=== PATIENT | female | born 1975 | race Caucasian/White ===

== ENCOUNTER 2020-03-10 16:36 | Inpatient (IN) | payer OTHER ==
--- NOTE | 2020-03-10 17:13 | ER Document Report ---
ED General - General Chief Complaint: Abdominal Pain Stated Complaint: SHORTNESS OF BREATH Time Seen by Provider: 03/10/20 16:48 Mode of Arrival: Wheelchair Information source: Patient Notes: 44-year-old female presents to ED for complaint of shortness of breath with hard black stools history of anemia. She states she has a horrible taste in her mouth and frequent dry heaves with a sore throat. TRAVEL OUTSIDE OF THE [place] IN LAST 30 DAYS: No - HPI Onset: Last week Quality of pain: Cramping - Couple weeks Associated symptoms: Nausea, Other - The patient black tarry stools short of breath dizziness decreased appetite and nausea Exacerbated by: Denies Relieved by: Denies Similar symptoms previously: Yes Recently seen / treated by doctor: No - Related Data Allergies/Adverse Reactions: No Known Allergies Allergy (Unverified 03/04/16 14:54) Past Medical History - General Information source: Patient - Social History Smoking Status: Never Smoker Frequency of alcohol use: Heavy - Couple cocktails a night Drug Abuse: None Lives with: Family Family History: Reviewed & Not Pertinent Patient has homicidal ideation: No - Past Medical History Cardiac Medical History: Reports: None Pulmonary Medical History: Reports: None EENT Medical History: Reports: None Neurological Medical History: Reports: None Endocrine Medical History: Reports: None Renal/ Medical History: Reports: None Malignancy Medical History: Reports: None GI Medical History: Reports: Other - Gallbladder was attached to the liver causing mild to be leakage with gallb Musculoskeletal Medical History: Reports Hx Musculoskeletal Trauma Skin Medical History: Reports None Psychiatric Medical History: Reports: None Traumatic Medical History: Reports: None Infectious Medical History: Reports: None Past Surgical History: Reports: Hx Abdominal Surgery - Gastric sleeve, Hx Cholecystectomy - With complications Review of Systems - Review of Systems Constitutional: No symptoms reported EENT: No symptoms reported Cardiovascular: No symptoms reported Respiratory: No symptoms reported Gastrointestinal: Abdominal pain, Nausea, Constipation. denies: Vomiting Genitourinary: No symptoms reported Female Genitourinary: No symptoms reported Musculoskeletal: No symptoms reported Skin: No symptoms reported Hematologic/Lymphatic: No symptoms reported Neurological/Psychological: No symptoms reported -: Yes All other systems reviewed and negative Physical Exam - Vital signs Vitals: Temp Pulse Resp BP Pulse Ox 98.5 F 109 H 21 H 154/111 H 98 03/10/20 16:44 03/10/20 16:44 03/10/20 16:44 03/10/20 16:44 03/10/20 16:44 Interpretation: Normal - General General appearance: Appears well, Alert - HEENT Head: Normocephalic, Atraumatic Eyes: Normal Pupils: PERRL - Respiratory Respiratory status: No respiratory distress Chest status: Nontender Breath sounds: Normal Chest palpation: Normal - Cardiovascular Rhythm: Regular Heart sounds: Normal auscultation Murmur: No - Abdominal Inspection: Normal Distension: No distension Bowel sounds: Normal Tenderness: Tender Organomegaly: No organomegaly - Back Back: Normal, Nontender - Extremities General upper extremity: Normal inspection, Nontender, Normal color, Normal ROM, Normal temperature General lower extremity: Normal inspection, Nontender, Normal color, Normal ROM, Normal temperature, Normal weight bearing. No: Yodit's sign - Neurological Neuro grossly intact: Yes Cognition: Normal Orientation: AAOx4 Yusef Coma Scale Eye Opening: Spontaneous Iraan Coma Scale Verbal: Oriented Yusef Coma Scale Motor: Obeys Commands Iraan Coma Scale Total: 15 Speech: Normal Motor strength normal: LUE, RUE, LLE, RLE Sensory: Normal - Psychological Associated symptoms: Normal affect, Normal mood - Skin Skin Temperature: Warm Skin Moisture: Dry Skin Color: Normal Course - Re-evaluation Re-evalutation: 03/10/20 20:[address] Delacruz after getting the lab results. He recommended the ultrasound right upper quadrant. This did show hepatomegaly with slight prominence to the pancreatic pancreas but no abnormal ducts and no ductal disease. I did consult Dr. Mathews who will be admitting the patient for pancreatitis and elevated LFTs. Dr. Mathews is aware that she drinks several cocktails a night. - Vital Signs Vital signs: Temp Pulse Resp BP Pulse Ox 98.2 F 76 18 155/76 H 99 03/10/20 21:29 03/10/20 21:29 03/10/20 21:29 03/10/20 21:29 03/10/20 21:29 - Laboratory Result Diagrams: 03/10/20 17:28 03/10/20 17:28 Laboratory results interpreted by me: 03/10/20 03/10/20 03/10/20 17:28 17:28 17:28 WBC 3.1 L MCV 98 H RDW 18.4 H Baso % (Auto) 2.5 H Sodium 133.6 L Chloride 94 L Carbon Dioxide 19 L Anion Gap 21 H BUN 4 L Glucose 74 L Total Bilirubin 4.7 H Direct Bilirubin 3.0 H AST 1255 H ALT 487 H Alkaline Phosphatase 233 H Lipase 2241.7 H Urine Protein 30 H Urine Ketones 80 H Urine Blood SMALL H Urine Bilirubin SMALL H Urine Urobilinogen 4.0 H - Diagnostic Test Radiology reviewed: Image reviewed, Reports reviewed Discharge - Discharge Clinical Impression: Elevated LFTs Pancreatitis Qualifiers: Chronicity: acute Pancreatitis type: unspecified pancreatitis type Acute panc reatitis complication: unspecified Qualified Code(s): K85.90 - Acute pancreatitis without necrosis or infection, unspecified Disposition: ADMITTED INPATIENT Admitting Provider: Bisi (Hospitalist) Unit Admitted: Medical Floor
[2020-03-10] MEDS ORDERED: NORMAL SALINE 1000 ML 1,000 ML IV ONE ×2 (17:15→19:43)
--- NOTE | 2020-03-10 17:41 | RADIOLOGY REPORT (SQ) ---
EXAM DESCRIPTION: CHEST 2 VIEWS IMAGES COMPLETED DATE/TIME: 03/10/2020 5:26 pm REASON FOR STUDY: short of breath COMPARISON: None. EXAM PARAMETERS: NUMBER OF VIEWS: two views TECHNIQUE: Digital Frontal and Lateral radiographic views of the chest acquired. RADIATION DOSE: NA LIMITATIONS: none FINDINGS: LUNGS AND PLEURA: Nonspecific elevation right diaphragm. No opacities, masses or pneumoth orax. No pleural effusion. MEDIASTINUM AND HILAR STRUCTURES: No masses or contour abnormalities. HEART AND VASCULAR STRUCTURES: Heart normal size. No evidence for failure. BONES: No acute findings. HARDWARE: None in the chest. OTHER: No other significant finding. IMPRESSION: NO ACUTE RADIOGRAPHIC FINDING IN THE CHEST. TECHNICAL DOCUMENTATION: JOB ID: [id number] 2010 [employer]- All Rights Reserved Reading location - IP/workstation name: [email or web address]
[2020-03-10] MEDS ORDERED: NA PHOS,M-B/NA PHOS,DI-BA (ADULT) 133 ML ENEMA PR ONE (17:47)
[2020-03-10] MEDS ORDERED: ONDANSETRON HCL INJ/PF 4 MG/2 ML SDV IV ONE (17:48)
[2020-03-10 17:52] LABS: ABSOLUTE BASOPHILS # (AUTO) 0.1 10^3/uL (0.0-0.2); ABSOLUTE LYMPHOCYTES (AUTO) 0.9 10^3/uL (0.5-4.7); ABSOLUTE MONOCYTES (AUTO) 0.3 10^3/uL (0.1-1.4); ABSOLUTE NEUT (AUTO) 1.8 10^3/uL (1.7-8.2); BASOPHILS % (AUTO) 2.5 % (0-2); EOSINOPHILS % (AUTO) 0.5 % (0-6); HEMATOCRIT 41.4 % (36.0-47.0); HEMOGLOBIN 14.1 g/dL (12.0-15.5); LYMPHOCYTES % (AUTO) 27.6 % (13-45); MEAN CORPUSCULAR HEMOGLOBIN 33.4 pg (27.0-33.4); MEAN CORPUSCULAR HGB CONC 34.1 g/dL (32.0-36.0); MEAN CORPUSCULAR VOLUME 98 fl (80-97); MONOCYTES % (AUTO) 10.1 % (3-13); PLATELET COUNT 153 10^3/uL (150-450); RED BLOOD COUNT 4.23 10^6/uL (3.72-5.28); RED CELL DISTRIBUTION WIDTH 18.4 % (11.5-14.0); SEGMENTED NEUTROPHILS % (AUTO) 59.3 % (42-78); TOTAL CELLS COUNTED % (AUTO) 100 %; WHITE BLOOD COUNT 3.1 10^3/uL (4.0-10.5)
[2020-03-10 17:55] LABS: APPEARANCE,URINE SLIGHTLY-CLOUDY; BILIRUBIN,URINE SMALL (NEGATIVE); GLUCOSE, URINE NEGATIVE (NEGATIVE); KETONES,URINE 80 mg/dL (NEGATIVE); PROTEIN,URINE 30 mg/dL (NEGATIVE); URINE SPECIFIC GRAVITY 1.014
[2020-03-10 18:01] LABS: ALBUMIN 4.9 g/dL (3.5-5.0); ALKALINE PHOSPHATASE 233 U/L (38-126); BILIRUBIN,TOTAL 4.7 mg/dL (0.2-1.3); BLOOD UREA NITROGEN 4 mg/dL (7-20); CALCIUM 9.1 mg/dL (8.4-10.2); GLUCOSE 74 mg/dL (75-110); POTASSIUM 4.7 mmol/L (3.6-5.0)
[2020-03-10 18:03] LABS: COLOR,URINE YELLOW
[2020-03-10 18:07] LABS: CARBON DIOXIDE 19 mmol/L (22-30); CHLORIDE 94 mmol/L (98-107)
[2020-03-10 18:11] LABS: ASPARTATE AMINO TRANSFERASE 1255 U/L (14-36)
[2020-03-10 18:12] LABS: ANION GAP 21 (5-19)
[2020-03-10] MEDS ORDERED: MORPHINE SULFATE 10 MG/ML INJ IV ONE (18:29)
--- NOTE | 2020-03-10 19:22 | RADIOLOGY REPORT (SQ) ---
EXAM DESCRIPTION: U/S ABDOMEN LTD W/DOPPLER IMAGES COMPLETED DATE/TIME: 03/10/2020 7:12 pm REASON FOR STUDY: elevated lipase and lft COMPARISON: None. TECHNIQUE: Dynamic and static grayscale images acquired of the abdomen and recorded on PACS. Additio nal selected color Doppler and spectral images recorded. LIMITATIONS: None. FINDINGS: PANCREAS: Slightly prominent. No obvious inflammatory changes. LIVER: Hepatomegaly. Increased echogenicity. Heterogeneous echotexture. LIVER VASCULATURE: Normal directional flow of the main portal vein and hepatic veins. GALLBLADDER: Surgically absent. ULTRASOUND-DETECTED NASCIMENTO'S SIGN: Not applicable. INTRAHEPATIC DUCTS AND COMMON DUCT: CBD and intrahepatic ducts normal caliber. No filling defects. INFERIOR VENA CAVA: Normal flow. AORTA: No aneurysm. RIGHT KIDNEY: Normal size, 11.1 cm. Normal echogenicity. No solid or suspicious masses. No hydroneph rosis. No calcifications. PERITONEAL AND RIGHT PLEURAL SPACE: No ascites or effusions. OTHER: No other significant findings. IMPRESSION: Hepatomegaly. Hepatic steatosis. Pancreas is slightly prominent but there are no obvio us inflammatory changes. TECHNICAL DOCUMENTATION: JOB ID: [id number] [employer]- All Rights Reserved Reading location - IP/workstation name: [email or web address]
[2020-03-10] MEDS ORDERED: RINGERS SOLUTION,LACTATED 1,000 ML IV ONE (19:47)
[2020-03-10] MEDS ORDERED: MORPHINE SULFATE 10 MG/ML INJ IV PRN (20:22)
[2020-03-10] MEDS ORDERED: HYDRALAZINE HCL INJ/PF 20 MG/1 ML SDV IV PRN (20:22)
[2020-03-10] MEDS ORDERED: LORAZEPAM INJ 2 MG/1 ML VIAL IV PRN (20:22)
[2020-03-10] MEDS ORDERED: ACETAMINOPHEN 650 MG SUPP.RECT PR PRN (20:22)
[2020-03-10] MEDS: RINGERS SOLUTION,LACTATED 1,000 ML IV PRN ×2 (20:48→23:36)
--- NOTE | 2020-03-10 21:35 | RADIOLOGY REPORT (SQ) ---
CT ABDOMEN PELVIS WITH IV CONTRAST EXAM DATE: 03/10/2020 12:00 AM CDT HISTORY: Abdominal pain. Elevated lipase and liver function enzymes. COMPARISON: None. TECHNIQUE: CT scan of the abdomen and pelvis was performed with IV contrast. This exam was performed according to our departmental dose-optimization program, which includes automated exposure control, adjustment of the mA and/or kV according to patient size and/or use of iterative reconstruction technique. FINDINGS: The lung bases are clear. No pleural or pericardial effusions. There is no hiatal hernia with prior gastric surgery noted. There is diffuse hepatic steatosis. There has been a prior cholecystectomy. Query mild inflammatory stranding of the pancreatic head. The spleen, adrenal glands, kidneys, and pelvic organs are normal. No obstructing urinary stones. The colon is underdistended with submucosal fatty infiltration. The appendix is unremarkable. There is no small bowel obstruction or inflammation. No intraperitoneal free fluid or free air is seen. There are mild degenerative changes of the spine. The aorta is unremarkable. No abnormal body wall hernia is seen. IMPRESSION: 1. Diffuse hepatic steatosis; please correlate with liver function tests to exclude steatohepatitis. 2. Query mild inflammatory stranding of the pancreatic head which may represent pancreatitis.
[2020-03-10] MEDS: FAMOTIDINE INJ/PF 20 MG/2 ML SDV IV SCH (23:05)
[2020-03-10] MEDS: HEPARIN SOD (PORCINE) 5,000 UNIT/ML 1 ML VIAL SUBCUT SCH (23:06)
[2020-03-10] MEDS: MORPHINE SULFATE 10 MG/ML INJ IV PRN (23:06)
--- NOTE | 2020-03-10 23:35 | PDOC H&P ---
History of Present Illness Admission Date/PCP: 03/10/2020 19:52 No local PCP Patient complains of: Abdominal pain History of Present Illness: FLAKO ALBRIGHT is a 44 year old female who presents to the emergency room with a 2-week history of abdominal pain. She admits the gradual onset and gradual worsening of intermittent sharp crampy upper abdominal pain over the last 2 weeks, with the pain becoming severe today. Her abdominal pain has been accompanied by dyspnea and associated with hard dark stools, anorexia, dizziness, nausea, dry heaves, pharyngitis, dyspepsia and dysgeusia. She denies other associated or accompanying signs and symptoms. Her pain and other symptoms are worsened by attempts at oral intake. She admits prior similar episodes related to recurrent anemia. She has not identified any additional aggravating or ameliorating factors for her abdominal pain. In the emergency room she was found to have an elevated lipase as well as elevated liver enzymes with no evidence of biliary obstruction on an upper abdominal ultrasound. She was subsequently admitted to the hospital for further evaluation treatment. Past Medical History Cardiac Medical History: Denies: Atrial Fibrillation, Coronary Artery Disease, DVT, Hyperlipidema, Hypertension Pulmonary Medical History: Denies: Asthma, Chronic Obstructive Pulmonary Disease (COPD) EENT Medical History: Denies: Cataracts, Ears - Hearing aids Neurological Medical History: Denies: Hemorrhagic CVA, Ischemic CVA, Seizures Endocrine Medical History: Reports: Obesity Denies: Diabetes Mellitus Type 1, Diabetes Mellitus Type 2, Hyperthyroidism, Hypothyroidism Renal/ Medical History: Denies: Chronic Kidney Disease, Nephrolithiasis Malignancy Medical History: Reports: None GI Medical History: Reports: Other - Cholecystectomy with complication of intra- abdominal bile leakage Denies: Cirrhosis, Crohn's Disease, Hepatitis, Peptic Ulcer Disease, Ulcerative Colitis Musculoskeltal Medical History: Denies: Arthritis, Fibromyalgia, Gout Skin Medical History: Denies: Eczema, Psoriasis Psychiatric Medical History: Denies: Alcohol Dependency, Substance Abuse, Tobacco Dependency Traumatic Medical History: Reports: None Hematology: Reports: Anemia Denies: Bleeding Tendencies Infectious Medical History: Reports: None Past Surgical History Past Surgical History: Reports: Cholecystectomy - Complicated by postoperative intra-abdominal bile leak, Gastric Bypass Surgery Social History Information Source: Patient Lives with: Family Smoking Status: Never Smoker Electronic Cigarette use?: No Frequency of Alcohol Use: Heavy - 2-3 drinks of liquor every night Hx Recreational Drug Use: No Drugs: None Hx Prescription Drug Abuse: No - Advance Directive Resuscitation Status: Full Code Surrogate healthcare decision maker:: Herb Albright Family History Family History: denies: CAD, DM, Hypertension, Malignancy Parental Family History Reviewed: Yes Children Family History Reviewed: No Sibling(s) Family History Reviewed.: Yes Medication/Allergy Home Medications: No Home Medications 03/10/20 Allergies/Adverse Reactions: No Known Allergies Allergy (Unverified 03/04/16 14:54) Review of Systems Constitutional: PRESENT: as per HPI, anorexia. ABSENT: chills, fever(s) Eyes: ABSENT: visual disturbances, other - Eye pain Ears: ABSENT: hearing changes, other - Ear pain Nose, Mouth, and Throat: PRESENT: as per HPI, sore throat. ABSENT: headache(s) Cardiovascular: ABSENT: chest pain, palpitations Respiratory: PRESENT: dyspnea. ABSENT: cough Gastrointestinal: PRESENT: as per HPI, abdominal pain, constipation, melena - Dark stools, nausea, vomiting - Dry heaves. ABSENT: diarrhea, hematemesis, hematochezia Genitourinary: ABSENT: dysuria, hematuria Musculoskeletal: ABSENT: back pain, joint swelling Integumentary: ABSENT: pruritus, rash Neurological: PRESENT: as per HPI, dizziness - Lightheadedness. ABSENT: confusion, convulsions, focal weakness, memory loss, syncope Psychiatric: ABSENT: anxiety, depression Endocrine: ABSENT: cold intolerance, heat intolerance, polydipsia, polyphagia, polyuria Hematologic/Lymphatic: ABSENT: easy bleeding, easy bruising Allergic/Immunologic: ABSENT: seasonal rhinorrhea Physical Exam Vital Signs: Temp Pulse Resp BP Pulse Ox 98.5 F 89 21 H 162/88 H 98 03/10/20 16:54 03/10/20 17:01 03/10/20 16:44 03/10/20 17:05 03/10/20 16:44 Intake & Output 03/08/20 03/09/20 03/10/20 23:59 23:59 23:59 Intake Total 1000 Balance 1000 Weight 112.1 kg General appearance: PRESENT: cooperative, mild distress - Due to abdominal pain, obese Head exam: PRESENT: atraumatic, normocephalic Eye exam: PRESENT: conjunctiva pink. ABSENT: conjunctival injection, scleral icterus Ear exam: PRESENT: normal external ear exam. ABSENT: bleeding, drainage Mouth exam: PRESENT: dry mucosa, neck supple Neck exam: ABSENT: thyromegaly, tracheal deviation Respiratory exam: PRESENT: clear to auscultation ellen, symmetrical, unlabored Cardiovascular exam: PRESENT: RRR. ABSENT: clicks, gallop, rubs Pulses: PRESENT: normal radial pulses, normal dorsalis pedis pul Vascular exam: PRESENT: normal capillary refill. ABSENT: pallor GI/Abdominal exam: PRESENT: normal bowel sounds, soft, tenderness - Generalized upper abdominal tenderness Rectal exam: PRESENT: deferred Extremities exam: ABSENT: joint swelling, pedal edema Musculoskeletal exam: ABSENT: deformity, dislocation Neurological exam: PRESENT: alert, oriented to person, oriented to place, oriented to time, oriented to situation, CN II-XII grossly intact. ABSENT: motor sensory deficit Psychiatric exam: PRESENT: appropriate affect, normal mood Skin exam: PRESENT: dry, intact, warm. ABSENT: jaundice, rash, urticaria Results Laboratory Results: 03/10/20 17:28 03/10/20 17:28 03/10/20 03/10/20 03/10/20 17:28 17:28 17:28 WBC 3.1 L RBC 4.23 Hgb 14.1 Hct 41.4 MCV 98 H MCH 33.4 MCHC 34.1 RDW 18.4 H Plt Count 153 Seg Neutrophils % 59.3 Sodium 133.6 L Potassium 4.7 Chloride 94 L Carbon Dioxide 19 L Anion Gap 21 H BUN 4 L Creatinine 0.58 Est GFR ( Amer) > 60 Glucose 74 L Calcium 9.1 Total Bilirubin 4.7 H AST 1255 H Alkaline Phosphatase 233 H Total Protein 8.0 Albumin 4.9 Lipase 2241.7 H Serum HCG, Qual NEGATIVE Urine Color Urine Appearance Urine pH Ur Specific [place] Urine Protein Urine Glucose (UA) Urine Ketones Urine Blood Urine RBC (Auto) Blood Type Antibody Screen 03/10/20 03/10/20 17:28 17:28 WBC RBC Hgb Hct MCV MCH MCHC RDW Plt Count Seg Neutrophils % Sodium Potassium Chloride Carbon Dioxide Anion Gap BUN Creatinine Est GFR ( Amer) Glucose Calcium Total Bilirubin AST Alkaline Phosphatase Total Protein Albumin Lipase Serum HCG, Qual Urine Color YELLOW Urine Appearance SLIGHTLY-CLOUDY Urine pH 6.0 Ur Specific [place] 1.014 Urine Protein 30 H Urine Glucose (UA) NEGATIVE Urine Ketones 80 H Urine Blood SMALL H Urine RBC (Auto) 0 Blood Type A POSITIVE Antibody Screen NEGATIVE 03/10/20 17:28 Troponin I 0.019 Impressions: Chest X-Ray 03/10/20 17:09 IMPRESSION: NO ACUTE RADIOGRAPHIC FINDING IN THE CHEST. Abdomen Ultrasound 03/10/20 18:29 IMPRESSION: Hepatomegaly. Hepatic steatosis. Pancreas is slightly prominent but there are no obvious inflammatory changes. Assessment and Plan - Diagnosis (1) Abdominal pain Qualifiers: Abdominal location: upper abdomen, unspecified Qualified Code(s): R10.10 - Upper abdominal pain, unspecified Is this a current diagnosis for this admission?: Yes (2) Acute pancreatitis Qualifiers: Pancreatitis type: alcohol induced Acute pancreatitis complication: unspecified Qualified Code(s): K85.20 - Alcohol induced acute pancreatitis without necrosis or infection Is this a current diagnosis for this admission?: Yes (3) Elevated LFTs Is this a current diagnosis for this admission?: Yes (4) Hyponatremia Is this a current diagnosis for this admission?: Yes (5) Obesity Qualifiers: Obesity type: unspecified obesity type Obesity classification: adult class 2 (BMI 35 - 39.9) Serious obesity comorbidity presence: unspecified whether serious comorbidity present Body mass index: BMI 38.0-38.9 Qualified Code(s): E66.9 - Obesity, unspecified; Z68.38 - Body mass index (BMI) 38.0-38.9, adult Is this a current diagnosis for this admission?: Yes - Plan Summary Summary: Patient will be admitted to the medical floor where she will receive routine supportive and symptomatic cares. She will be treated with IV fluids using LR at 167 mL/h. She will receive morphine sulfate 2 to 4 mg IV every 2 hours on an as-needed basis for pain control using a sliding scale for dosing. She will receive Ativan 1 mg IV every 4 hours as needed for anxiety or restlessness. A surgical consultation with Dr. Art will be obtained on a routine basis. CBCs, metabolic profiles, magnesium levels, lipase levels, liver function studies, lipid profiles and thyroid studies will be obtained as appropriate. Jeronimo haddad will initially be on a clear liquid diet with diet advancement based upon her tolerance. - Time Time Spent with patient: 15-24 minutes Medications reviewed and adjusted accordingly: Yes Anticipated discharge: Home - Inpatient Certification Based on my medical assessment, after consideration of the patient's comorbidities, presenting symptoms, or acuity I expect that the services needed warrant INPATIENT care.: Yes I certify that my determination is in accordance with my understanding of Medicare's requirements for reasonable and necessary INPATIENT services [42 CFR 412.3e].: Yes Medical Necessity: Need Close Monitoring Due to Risk of Patient Decompensation, Need For IV Fluids, Need for Pain Control, Risk of Complication if Not Cared For in Hospital
[2020-03-11] MEDS: METOCLOPRAMIDE HCL INJ/PF 10 MG/2 ML SDV IV SCH ×5 (00:43→23:10)
[2020-03-11] MEDS: MORPHINE SULFATE 10 MG/ML INJ IV PRN ×6 (01:24→20:54)
[2020-03-11] MEDS: RINGERS SOLUTION,LACTATED 1,000 ML IV PRN (05:29)
[2020-03-11] MEDS: HEPARIN SOD (PORCINE) 5,000 UNIT/ML 1 ML VIAL SUBCUT SCH ×3 (05:31→23:10)
[2020-03-11 06:08] LABS: HEMATOCRIT 33.6 % (36.0-47.0); MEAN CORPUSCULAR HEMOGLOBIN 33.8 pg (27.0-33.4); MEAN CORPUSCULAR HGB CONC 34.5 g/dL (32.0-36.0); MEAN CORPUSCULAR VOLUME 98 fl (80-97); PLATELET COUNT 104 10^3/uL (150-450); RED BLOOD COUNT 3.42 10^6/uL (3.72-5.28); RED CELL DISTRIBUTION WIDTH 18.1 % (11.5-14.0); WHITE BLOOD COUNT 2.7 10^3/uL (4.0-10.5)
[2020-03-11 06:10] LABS: HEMOGLOBIN 11.6 g/dL (12.0-15.5)
[2020-03-11 06:31] LABS: CARBON DIOXIDE 13 mmol/L (22-30); CHLORIDE 100 mmol/L (98-107)
[2020-03-11 06:38] LABS: DIRECT LDL 84 mg/dL (<100)
[2020-03-11 06:42] LABS: ASPARTATE AMINO TRANSFERASE 941 U/L (14-36); CALCIUM 8.2 mg/dL (8.4-10.2)
[2020-03-11 06:43] LABS: ALBUMIN 3.8 g/dL (3.5-5.0); ALKALINE PHOSPHATASE 175 U/L (38-126); ANION GAP 20 (5-19); BILIRUBIN,TOTAL 4.8 mg/dL (0.2-1.3); BLOOD UREA NITROGEN 2 mg/dL (7-20); POTASSIUM 4.3 mmol/L (3.6-5.0)
[2020-03-11 06:44] LABS: AMYLASE 117 U/L (30-110); BILIRUBIN,DIRECT 3.2 mg/dL (0.0-0.4); CHOLESTEROL 232.69 mg/dL (0-200); FREE T3 3.02 pg/mL (2.77-5.27); TOTAL PROTEIN 6.3 g/dL (6.3-8.2); TRIGLYCERIDES 81 mg/dL (<150); VLDL CHOLESTEROL 16.2 mg/dL (10-31)
[2020-03-11 06:45] LABS: GLUCOSE 33 mg/dL (75-110)
[2020-03-11] MEDS ORDERED: DEXTROSE 50%-WATER 25 GM/50 ML DISP.SYRIN IV ONE (06:52)
[2020-03-11 06:57] LABS: THYROID STIMULATING HORMONE 4.54 uIU/mL (0.47-4.68)
[2020-03-11] MEDS: PROMETHAZINE HCL INJ 25 MG/1 ML VIAL IV PRN ×3 (07:00→16:44)
--- NOTE | 2020-03-11 07:03 | PDOC CONSULTATION ---
Consultation Consult Date: 03/11/20 Provider Consulted: SURGICAL SURGICALIST MD Consult reason:: pancreatitis History of Present Illness Admission Date/PCP: 03/10/20 20:00 Patient complains of: abdominal pain, nausea, and vomiting History of Present Illness: FLAKO ALBRIGHT is a 44 year old female seen in consultation at the request of the hospitalist service. The patient has a history of alcohol abuse. She drinks every day. She complains of sharp, stabbing pain in the epigastric region, radiating to her back. She has constant nausea and dry heaves. She reports th at she has not been able to hold anything down in 2 days. Her pain started 2 to 3 days ago, and has progressively worsened. She presented to the hospital where she was found to have elevation of her LFTs and lipase. The patient was admitted to the hospitalist service for alcoholic pancreatitis as well as alcoholic hepatitis. Patient has a remote history of open cholecystectomy due to severe acute cholecystitis. She denies chest pain, shortness of breath, headache, fevers, chills, melena, hematochezia, hematemesis, blurry vision, orthostasis. She does report severe nausea, vomiting, abdominal pain, malaise, fatigue. Nothing makes her symptoms better or worse. They are constant. Past Medical History Cardiac Medical History: Reports: None Denies: Atrial Fibrillation, Coronary Artery Disease, DVT, Hyperlipidema, Hypertension Pulmonary Medical History: Reports: None Denies: Asthma, Chronic Obstructive Pulmonary Disease (COPD) EENT Medical History: Reports: None Denies: Cataracts, Ears - Hearing aids Neurological Medical History: Reports: None Denies: Hemorrhagic CVA, Ischemic CVA, Seizures Endocrine Medical History: Reports: None, Obesity Denies: Diabetes Mellitus Type 1, Diabetes Mellitus Type 2, Hyperthyroidism, Hypothyroidism Renal/ Medical History: Reports: None Denies: Chronic Kidney Disease, Nephrolithiasis Malignancy Medical History: Reports: None GI Medical History: Reports: Other - Cholecystectomy with complication of intra- abdominal bile leakage Denies: Cirrhosis, Crohn's Disease, Hepatitis, Peptic Ulcer Disease, Ulcerative Colitis Musculoskeltal Medical History: Denies: Arthritis, Fibromyalgia, Gout Skin Medical History: Reports: None Denies: Eczema, Psoriasis Psychiatric Medical History: Reports: None Denies: Alcohol Dependency, Depression, Substance Abuse, Tobacco Dependency Traumatic Medical History: Reports: None Hematology: Reports: Anemia Denies: Bleeding Tendencies Infectious Medical History: Reports: None Past Surgical History Past Surgical History: Reports: Cholecystectomy - Complicated by postoperative intra-abdominal bile leak, Gastric Bypass Surgery, Other - Gastric sleeve surgery Social History Lives with: Family Smoking Status: Never Smoker Electronic Cigarette use?: No Frequency of Alcohol Use: Heavy - 2-3 drinks of liquor every night Hx Recreational Drug Use: No Drugs: None Hx Prescription Drug Abuse: No - Advance Directive Resuscitation Status: Full Code Family History Family History: denies: CAD, DM, Hypertension, Malignancy Parental Family History Reviewed: Yes Children Family History Reviewed: Yes Sibling(s) Family History Reviewed.: Yes Medication/Allergy Home Medications: No Home Medications 03/10/20 Allergies/Adverse Reactions: No Known Allergies Allergy (Unverified 03/04/16 14:54) Review of Systems Constitutional: PRESENT: fatigue. ABSENT: anorexia, chills, fever(s), headache(s) Eyes: ABSENT: visual disturbances Ears: ABSENT: hearing changes Nose, Mouth, and Throat: ABSENT: sore throat Cardiovascular: ABSENT: chest pain Respiratory: ABSENT: cough, dyspnea Gastrointestinal: PRESENT: abdominal pain, bloating, nausea, vomiting. ABSENT: hematemesis, hematochezia, melena Genitourinary: ABSENT: dysuria Musculoskeletal: PRESENT: back pain Integumentary: ABSENT: pruritus, rash Neurological: ABSENT: confusion, convulsions, dizziness Psychiatric: ABSENT: anxiety, depression Endocrine: ABSENT: cold intolerance, heat intolerance Hematologic/Lymphatic: ABSENT: easy bleeding, easy bruising Physical Exam Vital Signs: Temp Pulse Resp BP Pulse Ox 98.2 F 87 18 164/82 H 98 03/11/20 00:24 03/11/20 00:24 03/11/20 00:24 03/11/20 00:24 03/11/20 00:24 Intake & Output 03/09/20 03/10/20 03/11/20 06:59 06:59 06:59 Intake Total 3451 Balance 3451 Weight 115.1 kg General appearance: PRESENT: no acute distress, cooperative, obese Eye exam: PRESENT: EOMI, PERRLA. ABSENT: scleral icterus Mouth exam: PRESENT: moist, neck supple Neck exam: ABSENT: meningismus, tenderness, thyromegaly, tracheal deviation Respiratory exam: PRESENT: unlabored. ABSENT: tachypnea, wheezes Cardiovascular exam: ABSENT: tachycardia Pulses: PRESENT: normal radial pulses GI/Abdominal exam: PRESENT: soft. ABSENT: distended, firm, tenderness Rectal exam: PRESENT: deferred Extremities exam: ABSENT: clubbing Musculoskeletal exam: ABSENT: deformity Neurological exam: PRESENT: alert, awake, oriented to person, oriented to place, oriented to time, oriented to situation, CN II-XII grossly intact. ABSENT: motor sensory deficit Psychiatric exam: ABSENT: agitated, anxious, depressed Focused psych exam: ABSENT: delusional Skin exam: ABSENT: cyanosis, erythema, jaundice Results Laboratory Results: 03/11/20 05:04 03/11/20 05:04 03/10/20 03/10/20 03/10/20 17:28 17:28 17:28 WBC 3.1 L RBC 4.23 Hgb 14.1 Hct 41.4 MCV 98 H MCH 33.4 MCHC 34.1 RDW 18.4 H Plt Count 153 Seg Neutrophils % 59.3 Sodium 133.6 L Potassium 4.7 Chloride 94 L Carbon Dioxide 19 L Anion Gap 21 H BUN 4 L Creatinine 0.58 Est GFR ( Amer) > 60 Glucose 74 L Calcium 9.1 Magnesium Total Bilirubin 4.7 H AST 1255 H Alkaline Phosphatase 233 H Total Protein 8.0 Albumin 4.9 Triglycerides Cholesterol LDL Cholesterol Direct VLDL Cholesterol HDL Cholesterol Amylase Lipase 2241.7 H Serum HCG, Qual NEGATIVE Urine Color Urine Appearance Urine pH Ur Specific [place] Urine Protein Urine Glucose (UA) Urine Ketones Urine Blood Urine RBC (Auto) Blood Type Antibody Screen 03/10/20 03/10/20 03/11/20 17:28 17:28 05:04 WBC 2.7 L RBC 3.42 L Hgb 11.6 L D Hct 33.6 L MCV 98 H MCH 33.8 H MCHC 34.5 RDW 18.1 H Plt Count 104 L Seg Neutrophils % Sodium Potassium Chloride Carbon Dioxide Anion Gap BUN Creatinine Est GFR ( Amer) Glucose Calcium Magnesium Total Bilirubin AST Alkaline Phosphatase Total Protein Albumin Triglycerides Cholesterol LDL Cholesterol Direct VLDL Cholesterol HDL Cholesterol Amylase Lipase Serum HCG, Qual Urine Color YELLOW Urine Appearance SLIGHTLY-CLOUDY Urine pH 6.0 Ur Specific [place] 1.014 Urine Protein 30 H Urine Glucose (UA) NEGATIVE Urine Ketones 80 H Urine Blood SMALL H Urine RBC (Auto) 0 Blood Type A POSITIVE Antibody Screen NEGATIVE 03/11/20 05:04 WBC RBC Hgb Hct MCV MCH MCHC RDW Plt Count Seg Neutrophils % Sodium 133.2 L Potassium 4.3 Chloride 100 Carbon Dioxide 13 L Anion Gap 20 H BUN 2 L Creatinine 0.53 Est GFR ( Amer) > 60 Glucose 33 L* Calcium 8.2 L Magnesium 1.6 Total Bilirubin 4.8 H AST 941 H Alkaline Phosphatase 175 H Total Protein 6.3 Albumin 3.8 Triglycerides 81 Cholesterol 232.69 H LDL Cholesterol Direct 84 VLDL Cholesterol 16.2 HDL Cholesterol 127 Amylase 117 H Lipase 2009.8 H Serum HCG, Qual Urine Color Urine Appearance Urine pH Ur Specific [place] Urine Protein Urine Glucose (UA) Urine Ketones Urine Blood Urine RBC (Auto) Blood Type Antibody Screen 03/10/20 17:28 Troponin I 0.019 Impressions: Abdomen/Pelvis CT 03/10/20 00:00 IMPRESSION: 1. Diffuse hepatic steatosis; please correlate with liver function tests to exclude steatohepatitis. 2. Query mild inflammatory stranding of the pancreatic head which may represent pancreatitis. Chest X-Ray 03/10/20 17:09 IMPRESSION: NO ACUTE RADIOGRAPHIC FINDING IN THE CHEST. Abdomen Ultrasound 03/10/20 18:29 IMPRESSION: Hepatomegaly. Hepatic steatosis. Pancreas is slightly prominent but there are no obvious inflammatory changes. Assessment & Plan - Diagnosis (1) Alcoholic pancreatitis Qualifiers: Acute pancreatitis complication: no infection or necrosis Is this a current diagnosis for this admission?: Yes (2) Alcoholic hepatitis Qualifiers: Ascites presence: without ascites Qualified Code(s): K70.10 - Alcoholic hepatitis without ascites Is this a current diagnosis for this admission?: Yes - Plan Summary Plan Summary: This is a 44-year-old female reports drinking heavily. She was admitted with alcoholic pancreatitis and alcoholic hepatitis. I have recommended she stop her alcohol consumption completely. At this time, she has no evidence of pancreatic necrosis or infection. Her right upper quadrant ultrasound and CT scan failed to show any evidence of biliary obstruction. The patient is status post cholecystectomy in the remote past. At this time, surgery is not indicated in this patient. I recommend supportive care, IV fluids, pain and nausea medications. Surgicalist service will sign off at this time. Please renotify with any questions or concerns.
[2020-03-11] MEDS ORDERED: GLUCAGON,HUMAN RECOMB 1 MG INJ IM PRN (09:57)
[2020-03-11] MEDS ORDERED: DEXTROSE 40% GEL 15 GM TUBE PO PRN ×2 (09:57)
[2020-03-11] MEDS ORDERED: DEXTROSE 50%-WATER 25 GM/50 ML DISP.SYRIN IV PRN ×2 (09:57)
--- NOTE | 2020-03-11 09:58 | PDOC PROGRESS REPORT ---
Subjective Progress Note for:: 03/11/20 Subjective:: Patient complains of: Abdominal pain History of Present Illness: FLAKO ALBRIGHT is a 44 year old female who presents to the emergency room with a 2-week history of abdominal pain. She admits the gradual onset and gradual worsening of intermittent sharp crampy upper abdominal pain over the last 2 weeks, with the pain becoming severe today. Her abdominal pain has been accompanied by dyspnea and associated with hard dark stools, anorexia, dizziness, nausea, dry heaves, pharyngitis, dyspepsia and dysgeusia. She denies other associated or accompanying signs and symptoms. Her pain and other symptoms are worsened by attempts at oral intake. She admits prior similar episodes related to recurrent anemia. She has not identified any additional aggravating or ameliorating factors for her abdominal pain. In the emergency room she was found to have an elevated lipase as well as elevated liver enzymes with no evidence of biliary obstruction on an upper abdominal ultrasound. She was subsequently admitted to the hospital for further evaluation treatment. Interval history: 03/11/2020: patient was seen and examined. She is doing better. Pain is improved. She is tolerated clear liquid diet. Liver enzymes are trending down. Glucose level was down to 33 this morning. Reason For Visit: ACUTE PANCREATITIS Physical Exam Vital Signs: Temp Pulse Resp BP Pulse Ox 97.7 F 94 20 188/101 H 97 03/11/20 07:06 03/11/20 07:06 03/11/20 07:06 03/11/20 07:06 03/11/20 07:06 Intake & Output 03/10/20 03/11/20 03/12/20 06:59 06:59 06:59 Intake Total 3451 Balance 3451 Weight 253 lb 12.033 oz General appearance: PRESENT: no acute distress, cooperative, morbidly obese Head exam: PRESENT: atraumatic, normocephalic Eye exam: PRESENT: EOMI, PERRLA Mouth exam: PRESENT: moist, neck supple Neck exam: ABSENT: meningismus, tenderness Respiratory exam: PRESENT: clear to auscultation ellen. ABSENT: accessory muscle use Cardiovascular exam: PRESENT: RRR, +S1, +S2 GI/Abdominal exam: PRESENT: normal bowel sounds, tenderness Rectal exam: PRESENT: deferred Extremities exam: ABSENT: calf tenderness, joint swelling, pedal edema Neurological exam: PRESENT: alert, awake, oriented to person, oriented to place, oriented to time, oriented to situation Psychiatric exam: PRESENT: appropriate affect, normal mood Skin exam: PRESENT: dry, intact Results Laboratory Results: 03/11/20 05:04 03/11/20 05:04 03/10/20 03/10/20 03/10/20 17:28 17:28 17:28 WBC 3.1 L RBC 4.23 Hgb 14.1 Hct 41.4 MCV 98 H MCH 33.4 MCHC 34.1 RDW 18.4 H Plt Count 153 Seg Neutrophils % 59.3 Sodium 133.6 L Potassium 4.7 Chloride 94 L Carbon Dioxide 19 L Anion Gap 21 H BUN 4 L Creatinine 0.58 Est GFR ( Amer) > 60 Glucose 74 L Calcium 9.1 Magnesium Total Bilirubin 4.7 H AST 1255 H Alkaline Phosphatase 233 H Total Protein 8.0 Albumin 4.9 Triglycerides Cholesterol LDL Cholesterol Direct VLDL Cholesterol HDL Cholesterol Amylase Lipase 2241.7 H TSH Free T3 pg/mL Serum HCG, Qual NEGATIVE Urine Color Urine Appearance Urine pH Ur Specific [place] Urine Protein Urine Glucose (UA) Urine Ketones Urine Blood Urine RBC (Auto) Blood Type Antibody Screen 03/10/20 03/10/20 03/11/20 17:28 17:28 05:04 WBC 2.7 L RBC 3.42 L Hgb 11.6 L D Hct 33.6 L MCV 98 H MCH 33.8 H MCHC 34.5 RDW 18.1 H Plt Count 104 L Seg Neutrophils % Sodium Potassium Chloride Carbon Dioxide Anion Gap BUN Creatinine Est GFR ( Amer) Glucose Calcium Magnesium Total Bilirubin AST Alkaline Phosphatase Total Protein Albumin Triglycerides Cholesterol LDL Cholesterol Direct VLDL Cholesterol HDL Cholesterol Amylase Lipase TSH Free T3 pg/mL Serum HCG, Qual Urine Color YELLOW Urine Appearance SLIGHTLY-CLOUDY Urine pH 6.0 Ur Specific [place] 1.014 Urine Protein 30 H Urine Glucose (UA) NEGATIVE Urine Ketones 80 H Urine Blood SMALL H Urine RBC (Auto) 0 Blood Type A POSITIVE Antibody Screen NEGATIVE 03/11/20 03/11/20 05:04 05:04 WBC RBC Hgb Hct MCV MCH MCHC RDW Plt Count Seg Neutrophils % Sodium 133.2 L Potassium 4.3 Chloride 100 Carbon Dioxide 13 L Anion Gap 20 H BUN 2 L Creatinine 0.53 Est GFR ( Amer) > 60 Glucose 33 L* Calcium 8.2 L Magnesium 1.6 Total Bilirubin 4.8 H AST 941 H Alkaline Phosphatase 175 H Total Protein 6.3 Albumin 3.8 Triglycerides 81 Cholesterol 232.69 H LDL Cholesterol Direct 84 VLDL Cholesterol 16.2 HDL Cholesterol 127 Amylase 117 H Lipase 2009.8 H TSH 4.54 Free T3 pg/mL 3.02 Serum HCG, Qual Urine Color Urine Appearance Urine pH Ur Specific [place] Urine Protein Urine Glucose (UA) Urine Ketones Urine Blood Urine RBC (Auto) Blood Type Antibody Screen 03/10/20 17:28 Troponin I 0.019 Impressions: Abdomen/Pelvis CT 03/10/20 00:00 IMPRESSION: 1. Diffuse hepatic steatosis; please correlate with liver function tests to exclude steatohepatitis. 2. Query mild inflammatory stranding of the pancreatic head which may represent pancreatitis. Chest X-Ray 03/10/20 17:09 IMPRESSION: NO ACUTE RADIOGRAPHIC FINDING IN THE CHEST. Abdomen Ultrasound 03/10/20 18:29 IMPRESSION: Hepatomegaly. Hepatic steatosis. Pancreas is slightly prominent but there are no obvious inflammatory changes. Assessment and Plan - Diagnosis (1) Abdominal pain Qualifiers: Abdominal location: upper abdomen, unspecified Qualified Code(s): R10.10 - Upper abdominal pain, unspecified Is this a current diagnosis for this admission?: Yes Plan: Improved. Continue current medications. (2) Acute pancreatitis Qualifiers: Pancreatitis type: alcohol induced Acute pancreatitis complication: unspecified Qualified Code(s): K85.20 - Alcohol induced acute pancreatitis without necrosis or infection Is this a current diagnosis for this admission?: Yes Plan: Keep her on clear liquid diet. Continue IV fluids. Continue symptomatic management. (3) Alcoholic hepatitis Qualifiers: Ascites presence: without ascites Qualified Code(s): K70.10 - Alcoholic hepatitis without ascites Is this a current diagnosis for this admission?: Yes Plan: Check INR and PT to calculate DF. Appears to be improving. Abstinence was rec ommended. (4) Hyponatremia Is this a current diagnosis for this admission?: Yes Plan: Mild and asymptomatic. Monitor. (5) Obesity Qualifiers: Obesity type: unspecified obesity type Obesity classification: adult class 2 (BMI 35 - 39.9) Serious obesity comorbidity presence: unspecified whether serious comorbidity present Body mass index: BMI 38.0-38.9 Qualified Code(s): E66.9 - Obesity, unspecified; Z68.38 - Body mass index (BMI) 38.0-38.9, adult Is this a current diagnosis for this admission?: Yes Plan: Patient was counseled. (6) Hypoglycemia Is this a current diagnosis for this admission?: Yes Plan: Change fluids to D5 normal saline. Monitor glucose levels. - Plan Summary Summary: Patient will be admitted to the medical floor where she will receive routine supportive and symptomatic cares. She will be treated with IV fluids using LR at 167 mL/h. She will receive morphine sulfate 2 to 4 mg IV every 2 hours on an as-needed basis for pain control using a sliding scale for dosing. She will receive Ativan 1 mg IV every 4 hours as needed for anxiety or restlessness. A surgical consultation with Dr. Art will be obtained on a routine basis. CBCs, metabolic profiles, magnesium levels, lipase levels, liver function studies, lipid profiles and thyroid studies will be obtained as appropriate. Patient will initially be on a clear liquid diet with diet advancement based upon her tolerance.
[2020-03-11 10:14] LABS: INTERNATIONAL RATION (INR) 1.03; PROTHROMBIN TIME 13.5 SEC (11.4-15.4)
[2020-03-11] MEDS: FAMOTIDINE INJ/PF 20 MG/2 ML SDV IV SCH ×2 (11:18→23:10)
[2020-03-11] MEDS: DEXTROSE 5%-NORMAL SALINE 1,000 ML IV PRN ×2 (11:19→16:58)
[2020-03-12] MEDS: MORPHINE SULFATE 10 MG/ML INJ IV PRN ×4 (02:43→20:08)
[2020-03-12] MEDS: DEXTROSE 5%-NORMAL SALINE 1,000 ML IV PRN ×2 (05:16→17:37)
[2020-03-12] MEDS: HEPARIN SOD (PORCINE) 5,000 UNIT/ML 1 ML VIAL SUBCUT SCH ×3 (05:18→22:07)
[2020-03-12 06:17] LABS: HEMATOCRIT 32.2 % (36.0-47.0); HEMOGLOBIN 11.1 g/dL (12.0-15.5); MEAN CORPUSCULAR HEMOGLOBIN 33.6 pg (27.0-33.4); MEAN CORPUSCULAR HGB CONC 34.6 g/dL (32.0-36.0); MEAN CORPUSCULAR VOLUME 97 fl (80-97); RED BLOOD COUNT 3.32 10^6/uL (3.72-5.28); RED CELL DISTRIBUTION WIDTH 18.2 % (11.5-14.0); WHITE BLOOD COUNT 2.1 10^3/uL (4.0-10.5)
[2020-03-12 06:32] LABS: PLATELET COUNT 86 10^3/uL (150-450)
[2020-03-12 06:40] LABS: ALBUMIN 3.6 g/dL (3.5-5.0); ALKALINE PHOSPHATASE 170 U/L (38-126); AMYLASE 268 U/L (30-110); ANION GAP 9 (5-19); ASPARTATE AMINO TRANSFERASE 706 U/L (14-36); BILIRUBIN,DIRECT 5.7 mg/dL (0.0-0.4); BILIRUBIN,TOTAL 7.7 mg/dL (0.2-1.3); BLOOD UREA NITROGEN 3 mg/dL (7-20); CALCIUM 8.6 mg/dL (8.4-10.2); CARBON DIOXIDE 22 mmol/L (22-30); CHLORIDE 101 mmol/L (98-107); GLUCOSE 119 mg/dL (75-110); POTASSIUM 3.1 mmol/L (3.6-5.0); TOTAL PROTEIN 6.2 g/dL (6.3-8.2)
[2020-03-12] MEDS: METOCLOPRAMIDE HCL INJ/PF 10 MG/2 ML SDV IV SCH ×4 (08:04→22:30)
--- NOTE | 2020-03-12 10:20 | PDOC PROGRESS REPORT ---
Subjective Progress Note for:: 03/12/20 Subjective:: The patient still complains of discomfort but in fact reports that it is better today. Reason For Visit: ACUTE PANCREATITIS Physical Exam Vital Signs: Temp Pulse Resp BP Pulse Ox 98.0 F 91 18 152/77 H 95 03/12/20 07:15 03/12/20 07:15 03/12/20 07:15 03/12/20 07:15 03/12/20 07:15 Intake & Output 03/11/20 03/12/20 03/13/20 06:59 06:59 06:59 Intake Total 3451 4711 Balance 3451 4711 Weight 115.1 kg 117 kg General appearance: PRESENT: no acute distress, cooperative, morbidly obese, well-developed Head exam: PRESENT: atraumatic, normocephalic Eye exam: PRESENT: conjunctiva pale, scleral icterus Ear exam: PRESENT: normal external ear exam. ABSENT: bleeding, drainage Mouth exam: PRESENT: moist, tongue midline Respiratory exam: PRESENT: clear to auscultation ellen, symmetrical, unlabored. ABSENT: prolonged expiratory phas, rales, rhonchi, tachypnea, wheezes Cardiovascular exam: PRESENT: RRR, +S1, +S2. ABSENT: diastolic murmur, irregular rhythm, systolic murmur GI/Abdominal exam: PRESENT: diminished bowel sounds, soft. ABSENT: distended, guarding, tenderness Rectal exam: PRESENT: deferred Extremities exam: ABSENT: pedal edema Musculoskeletal exam: PRESENT: ambulatory, normal inspection. ABSENT: deformity Neurological exam: PRESENT: alert, awake, oriented to person, oriented to place, oriented to time, oriented to situation, CN II-XII grossly intact. ABSENT: altered Psychiatric exam: PRESENT: appropriate affect. ABSENT: agitated, anxious Focused psych exam: ABSENT: delusional, paranoid, restlessness Results Laboratory Results: 03/12/20 05:13 03/12/20 05:13 03/12/20 03/12/20 05:13 05:13 WBC 2.1 L RBC 3.32 L Hgb 11.1 L Hct 32.2 L MCV 97 MCH 33.6 H MCHC 34.6 RDW 18.2 H Plt Count 86 L Sodium 132.0 L Potassium 3.1 L Chloride 101 Carbon Dioxide 22 Anion Gap 9 BUN 3 L Creatinine 0.45 L Est GFR ( Amer) > 60 Glucose 119 H Calcium 8.6 Magnesium 1.4 L Total Bilirubin 7.7 H AST 706 H Alkaline Phosphatase 170 H Total Protein 6.2 L Albumin 3.6 Amylase 268 H Lipase 4445.2 H 03/10/20 17:28 Troponin I 0.019 Impressions: Abdomen/Pelvis CT 03/10/20 00:00 IMPRESSION: 1. Diffuse hepatic steatosis; please correlate with liver function tests to exclude steatohepatitis. 2. Query mild inflammatory stranding of the pancreatic head which may represent pancreatitis. Chest X-Ray 03/10/20 17:09 IMPRESSION: NO ACUTE RADIOGRAPHIC FINDING IN THE CHEST. Abdomen Ultrasound 03/10/20 18:29 IMPRESSION: Hepatomegaly. Hepatic steatosis. Pancreas is slightly prominent but there are no obvious inflammatory changes. Assessment and Plan - Diagnosis (1) Abdominal pain Qualifiers: Abdominal location: upper abdomen, unspecified Qualified Code(s): R10.10 - Upper abdominal pain, unspecified Is this a current diagnosis for this admission?: Yes (2) Acute pancreatitis Qualifiers: Pancreatitis type: alcohol induced Acute pancreatitis complication: unspecified Qualified Code(s): K85.20 - Alcohol induced acute pancreatitis without necrosis or infection Is this a current diagnosis for this admission?: Yes (3) Alcoholic hepatitis Qualifiers: Ascites presence: without ascites Qualified Code(s): K70.10 - Alcoholic hepatitis without ascites Is this a current diagnosis for this admission?: Yes (4) Elevated LFTs Is this a current diagnosis for this admission?: Yes (5) Hypoglycemia Is this a current diagnosis for this admission?: Yes (6) Hyponatremia Is this a current diagnosis for this admission?: Yes (7) Morbid obesity with BMI of 40.0-44.9, adult Is this a current diagnosis for this admission?: Yes (8) Alcohol dependence Qualifiers: Substance use status: unspecified alcohol-induced disorder Qualified Code(s): F10.29 - Alcohol dependence with unspecified alcohol-induced disorder Is this a current diagnosis for this admission?: Yes - Plan Summary Summary: Patient will be admitted to the medical floor where she will receive routine supportive and symptomatic cares. She will be treated with IV fluids using LR at 167 mL/h. She will receive morphine sulfate 2 to 4 mg IV every 2 hours on an as-needed basis for pain control using a sliding scale for dosing. She will receive Ativan 1 mg IV every 4 hours as needed for anxiety or restlessness. A surgical consultation with Dr. Art will be obtained on a routine basis. CBCs, metabolic profiles, magnesium levels, lipase levels, liver function studies, lipid profiles and thyroid studies will be obtained as appropriate. Patient will initially be on a clear liquid diet with diet advancement based upon her tolerance. 03/12/2020 The patient is feeling better despite her enzymes increasing. She has some appetite. My concern is that with increasing enzymes her continued eating will worsen the disease. If the enzymes continue to increase or if her condition deteriorates we will make her strict n.p.o. and increase IV fluids. No evidence of alcohol withdrawal at this time. Hyponatremia is likely due to chronic liver disease. I am not sure of the hypoglycemia as both chronic pancreatic disease typically hyperglycemia is noted. We will monitor closely. No acute intervention for her morbid obesity at this time. We will continue to encourage alcohol cessation. - Time Time Spent with patient: 15-24 minutes Medications reviewed and adjusted accordingly: Yes Anticipated discharge: Home Within: Other - Unknown
[2020-03-12] MEDS ORDERED: POTASSIUM CHLORIDE 10 MEQ TABLET.ER PO ONE (11:00)
[2020-03-12] MEDS: FAMOTIDINE INJ/PF 20 MG/2 ML SDV IV SCH ×2 (11:10→22:29)
[2020-03-13] MEDS: DEXTROSE 5%-NORMAL SALINE 1,000 ML IV PRN ×4 (01:22→22:00)
[2020-03-13] MEDS: MORPHINE SULFATE 10 MG/ML INJ IV PRN ×4 (04:34→20:52)
[2020-03-13] MEDS: HEPARIN SOD (PORCINE) 5,000 UNIT/ML 1 ML VIAL SUBCUT SCH ×3 (06:14→21:12)
[2020-03-13 06:36] LABS: HEMATOCRIT 34.4 % (36.0-47.0); HEMOGLOBIN 11.9 g/dL (12.0-15.5); MEAN CORPUSCULAR HEMOGLOBIN 34.1 pg (27.0-33.4); MEAN CORPUSCULAR HGB CONC 34.5 g/dL (32.0-36.0); MEAN CORPUSCULAR VOLUME 99 fl (80-97); RED BLOOD COUNT 3.48 10^6/uL (3.72-5.28); RED CELL DISTRIBUTION WIDTH 18.6 % (11.5-14.0); WHITE BLOOD COUNT 2.2 10^3/uL (4.0-10.5)
[2020-03-13 07:00] LABS: PLATELET COUNT 74 10^3/uL (150-450)
[2020-03-13] MEDS: METOCLOPRAMIDE HCL INJ/PF 10 MG/2 ML SDV IV SCH ×4 (08:03→21:11)
[2020-03-13 08:18] LABS: ALBUMIN 3.4 g/dL (3.5-5.0); ALKALINE PHOSPHATASE 168 U/L (38-126); AMYLASE 154 U/L (30-110); ANION GAP 10 (5-19); ASPARTATE AMINO TRANSFERASE 351 U/L (14-36); BILIRUBIN,DIRECT 5.1 mg/dL (0.0-0.4); BILIRUBIN,TOTAL 6.8 mg/dL (0.2-1.3); BLOOD UREA NITROGEN 2 mg/dL (7-20); CALCIUM 8.1 mg/dL (8.4-10.2); CARBON DIOXIDE 21 mmol/L (22-30); CHLORIDE 103 mmol/L (98-107); GLUCOSE 103 mg/dL (75-110); POTASSIUM 3.8 mmol/L (3.6-5.0); TOTAL PROTEIN 5.8 g/dL (6.3-8.2)
[2020-03-13] MEDS: POTASSIUM CHLORIDE 10 MEQ TABLET.ER PO SCH (10:40)
[2020-03-13] MEDS: FAMOTIDINE INJ/PF 20 MG/2 ML SDV IV SCH ×2 (10:41→21:11)
--- NOTE | 2020-03-13 11:10 | PDOC PROGRESS REPORT ---
Subjective Progress Note for:: 03/13/20 Subjective:: Her appetite is still poor but she is again feeling slightly better. Her chemistries are significantly improved. Reason For Visit: ACUTE PANCREATITIS Physical Exam Vital Signs: Temp Pulse Resp BP Pulse Ox 98.0 F 83 16 143/78 H 99 03/13/20 07:21 03/13/20 07:21 03/13/20 07:21 03/13/20 07:21 03/13/20 07:21 Intake & Output 03/12/20 03/13/20 03/14/20 06:59 06:59 06:59 Intake Total 4711 3595 Balance 4711 3595 Weight 117 kg 118.1 kg General appearance: PRESENT: no acute distress, cooperative, morbidly obese, well-developed Head exam: PRESENT: atraumatic, normocephalic Eye exam: PRESENT: conjunctiva pink, EOMI, scleral icterus Ear exam: PRESENT: normal external ear exam. ABSENT: bleeding, drainage Mouth exam: PRESENT: moist, tongue midline Respiratory exam: PRESENT: clear to auscultation ellen, symmetrical, unlabored. ABSENT: prolonged expiratory phas, rales, rhonchi, tachypnea, wheezes Cardiovascular exam: PRESENT: RRR, +S1, +S2, other - S3. ABSENT: diastolic murmur, irregular rhythm, systolic murmur GI/Abdominal exam: PRESENT: normal bowel sounds, soft. ABSENT: distended, guarding, tenderness Rectal exam: PRESENT: deferred Gentrourinary exam: ABSENT: indwelling catheter Extremities exam: ABSENT: pedal edema Musculoskeletal exam: PRESENT: ambulatory, normal inspection. ABSENT: deformity Neurological exam: PRESENT: alert, awake, oriented to person, oriented to place, oriented to time, oriented to situation, CN II-XII grossly intact. ABSENT: altered, motor sensory deficit Psychiatric exam: PRESENT: appropriate affect, normal mood. ABSENT: agitated, anxious Focused psych exam: ABSENT: delusional, paranoid, restlessness Skin exam: PRESENT: dry, normal color, warm. ABSENT: rash Results Laboratory Results: 03/13/20 05:28 03/13/20 07:30 03/13/20 03/13/20 03/13/20 05:28 05:28 07:30 WBC 2.2 L RBC 3.48 L Hgb 11.9 L Hct 34.4 L MCV 99 H MCH 34.1 H MCHC 34.5 RDW 18.6 H Plt Count 74 L Sodium Cancelled 134.4 L Potassium Cancelled 3.8 Chloride Cancelled 103 Carbon Dioxide Cancelled 21 L Anion Gap Cancelled 10 BUN Cancelled 2 L Creatinine Cancelled 0.42 L Est GFR ( Amer) Cancelled > 60 Est GFR (Non-Af Amer) Cancelled Glucose Cancelled 103 Calcium Cancelled 8.1 L Magnesium Cancelled 1.4 L Total Bilirubin Cancelled 6.8 H AST Cancelled 351 H Alkaline Phosphatase Cancelled 168 H Total Protein Cancelled 5.8 L Albumin Cancelled 3.4 L Amylase Cancelled 154 H Lipase Cancelled 2144.1 H 03/10/20 17:28 Troponin I 0.019 Impressions: Abdomen/Pelvis CT 03/10/20 00:00 IMPRESSION: 1. Diffuse hepatic steatosis; please correlate with liver function tests to exclude steatohepatitis. 2. Query mild inflammatory stranding of the pancreatic head which may represent pancreatitis. Chest X-Ray 03/10/20 17:09 IMPRESSION: NO ACUTE RADIOGRAPHIC FINDING IN THE CHEST. Abdomen Ultrasound 03/10/20 18:29 IMPRESSION: Hepatomegaly. Hepatic steatosis. Pancreas is slightly prominent but there are no obvious inflammatory changes. Assessment and Plan - Diagnosis (1) Abdominal pain Qualifiers: Abdominal location: upper abdomen, unspecified Qualified Code(s): R10.10 - Upper abdominal pain, unspecified Is this a current diagnosis for this admission?: Yes (2) Acute pancreatitis Qualifiers: Pancreatitis type: alcohol induced Acute pancreatitis complication: unspecified Qualified Code(s): K85.20 - Alcohol induced acute pancreatitis without necrosis or infection Is this a current diagnosis for this admission?: Yes (3) Alcoholic hepatitis Qualifiers: Ascites presence: without ascites Qualified Code(s): K70.10 - Alcoholic hepatitis without ascites Is this a current diagnosis for this admission?: Yes (4) Elevated LFTs Is this a current diagnosis for this admission?: Yes (5) Hypoglycemia Is this a current diagnosis for this admission?: Yes (6) Hyponatremia Is this a current diagnosis for this admission?: Yes (7) Morbid obesity with BMI of 40.0-44.9, adult Is this a current diagnosis for this admission?: Yes (8) Alcohol dependence Qualifiers: Substance use status: unspecified alcohol-induced disorder Qualified Code(s): F10.29 - Alcohol dependence with unspecified alcohol-induced disorder Is this a current diagnosis for this admission?: Yes - Plan Summary Summary: Patient will be admitted to the medical floor where she will receive routine supportive and symptomatic cares. She will be treated with IV fluids using LR at 167 mL/h. She will receive morphine sulfate 2 to 4 mg IV every 2 hours on an as-needed basis for pain control using a sliding scale for dosing. She will receive Ativan 1 mg IV every 4 hours as needed for anxiety or restlessness. A surgical consultation with Dr. Art will be obtained on a routine basis. CBCs, metabolic profiles, magnesium levels, lipase levels, liver function s tudies, lipid profiles and thyroid studies will be obtained as appropriate. Patient will initially be on a clear liquid diet with diet advancement based upon her tolerance. 03/12/2020 The patient is feeling better despite her enzymes increasing. She has some appetite. My concern is that with increasing enzymes her continued eating will worsen the disease. If the enzymes continue to increase or if her condition deteriorates we will make her strict n.p.o. and increase IV fluids. No evidence of alcohol withdrawal at this time. Hyponatremia is likely due to chronic liver disease. I am not sure of the hypoglycemia as both chronic pancreatic disease typically hyperglycemia is noted. We will monitor closely. No acute intervention for her morbid obesity at this time. We will continue to encourage alcohol cessation. 03/13/2020 Serum chemistries are significantly improved from her last blood work. We will continue her diet. She is not having significant pain at this time. We will continue the IV fluids. I will repeat her blood work tomorrow. If there is ongoing improvement she will be able to discharged home. - Time Time Spent with patient: Less than 15 minutes Medications reviewed and adjusted accordingly: Yes Anticipated discharge: Home Within: within 48 hours
[2020-03-14] MEDS: MORPHINE SULFATE 10 MG/ML INJ IV PRN ×2 (02:17→07:59)
[2020-03-14] MEDS: DEXTROSE 5%-NORMAL SALINE 1,000 ML IV PRN ×2 (02:39→09:17)
[2020-03-14] MEDS: HEPARIN SOD (PORCINE) 5,000 UNIT/ML 1 ML VIAL SUBCUT SCH ×2 (05:18→13:52)
[2020-03-14] MEDS: METOCLOPRAMIDE HCL INJ/PF 10 MG/2 ML SDV IV SCH ×2 (07:53→11:47)
[2020-03-14] MEDS: POTASSIUM CHLORIDE 10 MEQ TABLET.ER PO SCH (09:20)
[2020-03-14] MEDS: FAMOTIDINE INJ/PF 20 MG/2 ML SDV IV SCH (09:20)
[2020-03-14 13:01] VITALS: BP 158/89
--- NOTE | 2020-03-14 13:01 | PDOC DISCHARGE SUMMARY ---
Impression - Admit/DC Date/PCP Admission Date/Primary Care Provider: 03/10/20 20:00 Discharge Date: 03/14/20 - Discharge Diagnosis (1) Abdominal pain Is this a current diagnosis for this admission?: Yes (2) Acute pancreatitis Is this a current diagnosis for this admission?: Yes (3) Alcoholic hepatitis Is this a current diagnosis for this admission?: Yes (4) Elevated LFTs Is this a current diagnosis for this admission?: Yes (5) Hypoglycemia Is this a current diagnosis for this admission?: Yes (6) Hyponatremia Is this a current diagnosis for this admission?: Yes (7) Morbid obesity with BMI of 40.0-44.9, adult Is this a current diagnosis for this admission?: Yes (8) Alcohol dependence Is this a current diagnosis for this admission?: Yes - Assessment Summary: Patient will be admitted to the medical floor where she will receive routine supportive and symptomatic cares. She will be treated with IV fluids using LR at 167 mL/h. She will receive morphine sulfate 2 to 4 mg IV every 2 hours on an as-needed basis for pain control using a sliding scale for dosing. She will receive Ativan 1 mg IV every 4 hours as needed for anxiety or restlessness. A surgical consultation with Dr. Art will be obtained on a routine basis. CBCs, metabolic profiles, magnesium levels, lipase levels, liver function studies, lipid profiles and thyroid studies will be obtained as appropriate. Patient will initially be on a clear liquid diet with diet advancement based upon her tolerance. 03/12/2020 The patient is feeling better despite her enzymes increasing. She has some appetite. My concern is that with increasing enzymes her continued eating will worsen the disease. If the enzymes continue to increase or if her condition deteriorates we will make her strict n.p.o. and increase IV fluids. No evidence of alcohol withdrawal at this time. Hyponatremia is likely due to chronic liver disease. I am not sure of the hypoglycemia as both chronic pancreatic disease typically hyperglycemia is noted. We will monitor closely. No acute intervention for her morbid obesity at this time. We will continue to encourage alcohol cessation. 03/13/2020 Serum chemistries are significantly improved from her last blood work. We will continue her diet. She is not having significant pain at this time. We will continue the IV fluids. I will repeat her blood work tomorrow. If there is ongoing improvement she will be able to discharged home. - Additional Information Resuscitation Status: Full Code Discharge Diet: Regular Discharge Activity: Activity As Tolerated Referrals: DALTON ZAMUDIO DO [NO LOCAL MD] - (For follow-up and to establish for primary care) Prescriptions: Potassium Chloride [Klor-Con 10 Meq Tablet ER] 10 meq PO DAILY 7 Days #7 tablet.er Hydrocodone/Acetaminophen [[place] 5-325 mg Tablet] 1 tab PO Q6 PRN #6 tablet PRN Reason: For Pain Home Medications: Hydrocodone/Acetaminophen [[place] 5-325 mg Tablet] 1 tab PO Q6 PRN #6 tablet 03/14/20 Potassium Chloride [Klor-Con 10 Meq Tablet ER] 10 meq PO DAILY 7 Days #7 tablet.er 03/14/20 History of Present Illiness History of Present Illness: FLAKO ALBRIGHT is a 44 year old female who presents to the emergency room with a 2-week history of abdominal pain. She admits the gradual onset and gradual wo rsening of intermittent sharp crampy upper abdominal pain over the last 2 weeks, with the pain becoming severe today. Her abdominal pain has been accompanied by dyspnea and associated with hard dark stools, anorexia, dizziness, nausea, dry heaves, pharyngitis, dyspepsia and dysgeusia. She denies other associated or accompanying signs and symptoms. Her pain and other symptoms are worsened by attempts at oral intake. She admits prior similar episodes related to recurrent anemia. She has not identified any additional aggravating or ameliorating factors for her abdominal pain. In the emergency room she was found to have an elevated lipase as well as elevated liver enzymes with no evidence of biliary obstruction on an upper abdominal ultrasound. She was subsequently admitted to the hospital for further evaluation treatment. Hospital Course Hospital Course: The patient had an uncomplicated but prolonged hospital course. Due to the significant elevation of her lipase and hepatic enzymes as well as ongoing discomfort risks of several days for her to achieve stable status. Electrolytes were corrected. She has a decent appetite, has minimal pain and her enzymes continue to decrease. She is stable for discharge. Physical Exam Vital Signs: Temp Pulse Resp BP Pulse Ox 97.7 F 83 17 158/89 H 100 03/14/20 08:00 03/14/20 08:00 03/14/20 08:00 03/14/20 08:00 03/14/20 08:00 Intake & Output 03/13/20 03/14/20 03/15/20 06:59 06:59 06:59 Intake Total 3591 4438 1000 Balance 3595 4487 1000 Weight 118.1 kg 118.1 kg General appearance: PRESENT: no acute distress, cooperative, morbidly obese, well-developed, well-nourished Head exam: PRESENT: atraumatic Respiratory exam: PRESENT: clear to auscultation ellen, symmetrical, unlabored. ABSENT: prolonged expiratory phas, rales, rhonchi, tachypnea, wheezes Cardiovascular exam: PRESENT: RRR, +S1, +S2. ABSENT: irregular rhythm, tachycardia GI/Abdominal exam: PRESENT: normal bowel sounds, soft. ABSENT: distended, guarding, tenderness Extremities exam: ABSENT: pedal edema Musculoskeletal exam: PRESENT: ambulatory, normal inspection Neurological exam: PRESENT: alert, awake, oriented to person, oriented to place, oriented to time, oriented to situation, CN II-XII grossly intact. ABSENT: a ltered, motor sensory deficit Psychiatric exam: ABSENT: agitated, anxious Results Laboratory Results: WBC 2.2 10^3/uL (4.0-10.5) L 03/13/20 05:28 RBC 3.48 10^6/uL (3.72-5.28) L 03/13/20 05:28 Hgb 11.9 g/dL (12.0-15.5) L 03/13/20 05:28 Hct 34.4 % (36.0-47.0) L 03/13/20 05:28 MCV 99 fl (80-97) H 03/13/20 05:28 MCH 34.1 pg (27.0-33.4) H 03/13/20 05:28 MCHC 34.5 g/dL (32.0-36.0) 03/13/20 05:28 RDW 18.6 % (11.5-14.0) H 03/13/20 05:28 Plt Count 74 10^3/uL (150-450) L 03/13/20 05:28 Lymph % (Auto) 27.6 % (13-45) 03/10/20 17:28 [place] % (Auto) 10.1 % (3-13) 03/10/20 17:28 Eos % (Auto) 0.5 % (0-6) 03/10/20 17:28 Baso % (Auto) 2.5 % (0-2) H 03/10/20 17:28 Absolute Neuts (auto) 1.8 10^3/uL (1.7-8.2) 03/10/20 17: Absolute Lymphs (auto) 0.9 10^3/uL (0.5-4.7) 03/10/20: Absolute Monos (auto) 0.3 10^3/uL (0.1-1.4) 03/10/20 17: Absolute Eos (auto) 0.0 10^3/uL (0.0-0.6) 03/10/20: Absolute Basos (auto) 0.1 10^3/uL (0.0-0.2) 03/10/20 17: Seg Neutrophils % 59.3 % (42-78) 03/10/20 17:28 PT 13.5 SEC (11.4-15.4) 03/11/20 09:52 INR 1.03 03/11/20 09:52 APTT 23.0 SEC (23.5-35.8) L 03/11/20 09:52 Sodium 134.4 mmol/L (137-145) L 03/13/20 07:30 Potassium 3.8 mmol/L (3.6-5.0) 03/13/20 07:30 Chloride 103 mmol/L (98-107) 03/13/20 07:30 Carbon Dioxide 21 mmol/L (22-30) L 03/13/20 07:30 Anion Gap 10 (5-19) 03/13/20 07:30 BUN 2 mg/dL (7-20) L 03/13/20 07:30 Creatinine 0.42 mg/dL (0.52-1.25) L 03/13/20 07:30 Est GFR ( Amer) > 60 (>60) 03/13/20 07:30 Est GFR (Non-Af Amer) Cancelled 03/13/20 05:28 Est GFR (MDRD) Non-Af > 60 (>60) 03/13/20 07:30 Glucose 103 mg/dL (75-110) 03/13/20 07:30 POC Glucose 111 mg/dL (70-110) H 03/14/20 11:23 Hemoglobin A1c % 4.5 % (4.7-6.0) L 03/11/20 05:04 Calcium 8.1 mg/dL (8.4-10.2) L 03/13/20 07:30 Magnesium 1.4 mg/dL (1.6-2.3) L 03/13/20 07:30 Total Bilirubin 6.8 mg/dL (0.2-1.3) H 03/13/20 07:30 Direct Bilirubin 5.1 mg/dL (0.0-0.4) H 03/13/20 07:30 Neonat Total Bilirubin Not Reportable 03/13/20 07:30 Neonat Direct Bilirubin Not Reportable 03/13/20 07:30 Neonat Indirect Bili Not Reportable 03/13/20 07:30 AST 351 U/L (14-36) H 03/13/20 07:30 ALT 246 U/L (<35) H 03/13/20 07:30 Alkaline Phosphatase 168 U/L (38-126) H 03/13/20 07:30 Troponin I 0.019 ng/mL 03/10/20 17:28 Total Protein 5.8 g/dL (6.3-8.2) L 03/13/20 07:30 Albumin 3.4 g/dL (3.5-5.0) L 03/13/20 07:30 Triglycerides 81 mg/dL (<150) 03/11/20 05:04 Cholesterol 232.69 mg/dL (0-200) H 03/11/20 05:04 LDL Cholesterol Direct 84 mg/dL (<100) 03/11/20 05:04 VLDL Cholesterol 16.2 mg/dL (10-31) 03/11/20 05:04 HDL Cholesterol 127 mg/dL (>40) 03/11/20 05:04 Amylase 154 U/L (30-110) H 03/13/20 07:30 Lipase 2144.1 U/L (23-300) H 03/13/20 07:30 EGFR Cancelled 03/13/20 05:28 TSH 4.54 uIU/mL (0.47-4.68) 03/11/20 05:04 Free T3 pg/mL 3.02 pg/mL (2.77-5.27) 03/11/20 05:04 Serum HCG, Qual NEGATIVE (NEGATIVE) 03/10/20 17:28 Urine Color YELLOW 03/10/20 17:28 Urine Appearance SLIGHTLY-CLOUDY 03/10/20 17:28 Urine pH 6.0 (5.0-9.0) 03/10/20 17:28 Ur Specific [place] 1.014 03/10/20 17:28 Urine Protein 30 mg/dL (NEGATIVE) H 03/10/20 17:28 Urine Glucose (UA) NEGATIVE mg/dL (NEGATIVE) 03/10/20 17:28 Urine Ketones 80 mg/dL (NEGATIVE) H 03/10/20 17:28 Urine Blood SMALL (NEGATIVE) H 03/10/20 17:28 Urine Nitrite (Reflex) NEGATIVE (NEGATIVE) 03/10/20 17:28 Urine Bilirubin SMALL (NEGATIVE) H 03/10/20 17:28 Urine Urobilinogen 4.0 mg/dL (<2.0) H 03/10/20 17:28 Leukocyte Esterase Rfl NEGATIVE (NEGATIVE) 03/10/20 17:28 Urine RBC (Auto) 0 /HPF 03/10/20 17:28 U Hyaline Cast (Auto) 14 /LPF 03/10/20 17:28 Urine Bacteria (Auto) TRACE /HPF 03/10/20 17:28 Urine WBC (Reflex) 2 /HPF 03/10/20 17:28 Squamous Epi Cells Auto 15 /HPF 03/10/20 17:28 Urine Mucus (Auto) MOD /LPF 03/10/20 17:28 Urine Ascorbic Acid NEGATIVE (NEGATIVE) 03/10/20 17:28 POC Stool Occult Blood NEGATIVE (NEGATIVE) 03/10/20 17:44 Blood Type A POSITIVE 03/10/20 17:28 Antibody Screen NEGATIVE 03/10/20 17:28 03/10/20 17:28 Troponin I 0.019 Impressions: Abdomen/Pelvis CT 03/10/20 00:00 IMPRESSION: 1. Diffuse hepatic steatosis; please correlate with liver function tests to exclude steatohepatitis. 2. Query mild inflammatory stranding of the pancreatic head which may represent pancreatitis. Chest X-Ray 03/10/20 17:09 IMPRESSION: NO ACUTE RADIOGRAPHIC FINDING IN THE CHEST. Abdomen Ultrasound 03/10/20 18:29 IMPRESSION: Hepatomegaly. Hepatic steatosis. Pancreas is slightly prominent but there are no obvious inflammatory changes. Plan Health Concerns: There is an absolute necessity to stop alcohol intake Plan of Treatment: Slowly advance diet. Back to work on Sunday. She will establish with a primary care in [place]. Goals: Cessation of alcohol use. Healing of liver and pancreas. Long-term goal-weight loss Time Spent: Greater than 30 Minutes Stroke Is this a Stroke Patient?: No Acute Heart Failure - Is this a Heart Failure Patient?: No
[2020-03-14] MEDS ORDERED: ONDANSETRON 4 MG TAB.RAPDIS PO ONE (13:45)
== END 2020-03-14 13:54 | disposition home or self-care (01) | DRG 439 ==
LOC: ER 16:36 → EH 20:00 → 4S 21:33
PROVIDERS: ADMIT Emergency Medicine; ATTEND Hospitalist
DX: K85.20 Alcohol induced acute pancreatitis without necrosis or infection (principal); E87.1 Hypo-osmolality and hyponatremia; Z68.41 Body mass index [BMI] 40.0-44.9, adult; K70.10 Alcoholic hepatitis without ascites; F10.20 Alcohol dependence, uncomplicated; R94.5 Abnormal results of liver function studies; E16.2 Hypoglycemia, unspecified; E66.01 Morbid (severe) obesity due to excess calories; Y90.9 Presence of alcohol in blood, level not specified; Z98.84 Bariatric surgery status
CPT/HCPCS: 36415; 71046; 74177; 76705; 80048; 80053; 80061; 80076; 81001; 82150; 82270; 82962; 83036; 83690; 83735; 84443; 84481; 84484; 84703; 85025; 85027; 85610; 85730; 86850; 86900; 86901; 93976; 96361; 96374; 96375; 99285; J0360; J1644; J2270; J2405; J2550; J2765; J3490; J7030; J7042; J7120; S0028; S0119

== ENCOUNTER 2020-11-24 23:10 | Outpatient (CLI) | payer OTHER ==
[2020-11-24] MEDS ORDERED: GLUCAGON,HUMAN RECOMB 1 MG INJ SUBCUT PRN (23:32)
[2020-11-24] MEDS ORDERED: DEXTROSE 40% GEL 15 GM TUBE PO PRN ×2 (23:32)
[2020-11-24] MEDS ORDERED: DEXTROSE 50%-WATER 25 GM/50 ML DISP.SYRIN IV PRN ×2 (23:32)
[2020-11-24] MEDS ORDERED: VANCOMYCIN HCL 1,500 MG in DEXTROSE 5%-WATER 250 ML IV ONE (23:50)
[2020-11-24] MEDS ORDERED: VANCOMYCIN HCL INJ 1000 MG VIAL IV PRN (23:53)
[2020-11-24] MEDS ORDERED: SODIUM CHLORIDE 3% 500 ML IV ONE (23:59)
[2020-11-25] MEDS ORDERED: HEPARIN SOD (PORCINE) 1,000 UNIT/ML 10 ML VIAL IV ONE ×2 (00:30→04:00)
--- NOTE | 2020-11-25 00:57 | RADIOLOGY REPORT (SQ) ---
CLINICAL INDICATION: Respiratory failure. TECHNIQUE: A single portable AP view was obtained of the chest at 0032 hours. COMPARISON: November 21, 2020. FINDINGS: The cardiomediastinal silhouette is enlarged. The lungs demonstrate progressive left basilar airspace disease and adjacent pleural effusion. Crowding right lung base, likely volume related. Right IJ central venous catheter tip projects over SVC RA junction, satisfactory. Nasogastric tube tip in good position. The endotracheal tube tip is above the thoracic inlet and approximately 9 cm above the danny.. IMPRESSION: Progressive left basilar airspace disease and adjacent pleural reaction. This is suspicious for pneumonia. Endotracheal tube needs to be advanced approximately 5 cm..
[2020-11-25] MEDS ORDERED: DEXTROSE 5%-WATER 250 ML with PHENYLEPHRINE HCL 40 MG IV PRN ×2 (01:21)
[2020-11-25] MEDS ORDERED: DEXTROSE 5%-WATER 250 ML with VASOPRESSIN 100 UNIT IV PRN ×2 (01:21)
[2020-11-25 01:40] LABS: ARTERIAL BLOOD BASE EXCESS 4.1 mmol/L; ARTERIAL BLOOD H2CO3 1.68 mmol/L (1.05-1.35); ARTERIAL BLOOD HCO3 30.8 mmol/L (20-24); ARTERIAL BLOOD O2 SATURATION 90.5 % (94-98); ARTERIAL BLOOD PCO2 55.7 mmHg (35-45); ARTERIAL BLOOD PH 7.36 (7.35-7.45); ARTERIAL BLOOD TOTAL CO2 32.5 mmol/L (21-25)
[2020-11-25 01:41] LABS: ARTERIAL BLOOD FIO2 70%
[2020-11-25 01:48] LABS: ALBUMIN 2.2 g/dL (3.5-5.0); ALKALINE PHOSPHATASE 335 U/L (38-126); ANION GAP 6 (5-19); ASPARTATE AMINO TRANSFERASE 320 U/L (14-36); BILIRUBIN,DIRECT 6.4 mg/dL (0.0-0.4); BILIRUBIN,TOTAL 7.4 mg/dL (0.2-1.3); BLOOD UREA NITROGEN 12 mg/dL (7-20); CARBON DIOXIDE 37 mmol/L (22-30); CHLORIDE 76 mmol/L (98-107); GLUCOSE 153 mg/dL (75-110); PHOSPHORUS 3.6 mg/dL (2.5-4.5); POTASSIUM 3.8 mmol/L (3.6-5.0); TOTAL PROTEIN 4.5 g/dL (6.3-8.2)
[2020-11-25 01:51] LABS: INTERNATIONAL RATION (INR) 1.03; PROTHROMBIN TIME 13.7 SEC (11.4-15.4)
[2020-11-25 01:52] LABS: PARTIAL THROMBOPLASTIN TIME 39.2 SEC (23.5-35.8)
[2020-11-25 01:58] LABS: CALCIUM 5.9 mg/dL (8.4-10.2)
[2020-11-25 02:15] LABS: APPEARANCE,URINE CLOUDY; BILIRUBIN,URINE MODERATE (NEGATIVE); COLOR,URINE AMBER; GLUCOSE, URINE NEGATIVE (NEGATIVE); KETONES,URINE NEGATIVE (NEGATIVE); LEUKOCYTE ESTERASE,URINE MODERATE (NEGATIVE); NITRITE,URINE POSITIVE (NEGATIVE); PROTEIN,URINE 100 mg/dL (NEGATIVE)
[2020-11-25 02:32] LABS: HEMATOCRIT 29.6 % (36.0-47.0); MEAN CORPUSCULAR HEMOGLOBIN 34.2 pg (27.0-33.4); MEAN CORPUSCULAR HGB CONC 33.8 g/dL (32.0-36.0); MEAN CORPUSCULAR VOLUME 101 fl (80-97); RED BLOOD COUNT 2.93 10^6/uL (3.72-5.28); RED CELL DISTRIBUTION WIDTH 18.1 % (11.5-14.0); WHITE BLOOD COUNT 6.1 10^3/uL (4.0-10.5)
[2020-11-25 02:49] LABS: PLATELET COUNT 68 10^3/uL (150-450)
[2020-11-25 02:52] LABS: ABSOLUTE LYMPHOCYTES# (MANUAL) 0.5 10^3/uL (0.5-4.7); ABSOLUTE MONOCYTES # (MANUAL) 0.2 10^3/uL (0.1-1.4); BAND NEUTROPHILS % (MANUAL) 1 % (3-5); BASOPHILS % (MANUAL) 0 % (0-2); EOSINOPHILS % (MANUAL) 1 % (0-6); LYMPHOCYTES % (MANUAL) 8 % (13-45); MONOCYTES % (MANUAL) 3 % (3-13); NUCLEATED RED BLOOD CELLS 2 /100 WBC (0); SEGMENTED NEUTROPHILS % (MAN) 87 % (42-78); TOTAL CELLS COUNTED 100
[2020-11-25 02:54] LABS: ANISOCYTOSIS 2+; PLATELET COMMENT ADEQUATE; POLYCHROMASIA 1+
[2020-11-25] MEDS: DEXTROSE 5%-WATER 250 ML with EPINEPHRINE/PF 1 MG IV PRN ×6 (03:31→04:15)
[2020-11-25 03:32] VITALS: BP 115/66
[2020-11-25] MEDS ORDERED: PIPERACILLIN/TAZOBACTAM 3.375 GM VIAL IV ONE ×2 (03:40→04:00)
[2020-11-25] MEDS ORDERED: VANCOMYCIN HCL INJ 1000 MG VIAL ONE ×2 (03:41→03:51)
[2020-11-25] MEDS ORDERED: MORPHINE SULFATE 10 MG/ML INJ IV PRN (05:03)
[2020-11-25] MEDS ORDERED: MORPHINE SULFATE 10 MG/ML INJ ONE (05:06)
--- NOTE | 2020-11-25 07:59 | Death Summary ---
Summary Date : 11/25/20 Autopsy: No Resuscitation Status: Other - Patient made full code with the intent of organ procurement. - Final Diagnosis (1) Anoxic encephalopathy Is this a current diagnosis for this admission?: Yes (2) Cerebral edema due to anoxia Is this a current diagnosis for this admission?: Yes Hospital Course:: Rosalinda Olvera is a 45-year-old female with a history of hypertension, depression and moderate EtOH abuse. She was found by her after unknown time to have agonal breathing. EMS was activated and CPR was performed in the home. After arriving to the emergency department, she again arrested with a brief round of CPR prior to ROSC. Head CT in the emergency department showed early evidence of cerebral edema. Patient was brought to the ICU, was cooled as per postarrest protocol and then rewarmed over the course of an additional 48 hours. Patient became hemodynamically unstable and her pupils became fixed and dilated. Patient had no corneal reflexes, no gag reflexes and repeat CT scan showed severe and expanding edema. Patient's family was notified of her acute change and end-of-life discussions were held. Patient was made DNR. We then spoke further with the family who agreed to pursue organ donation. As per guidelines set forth by [place] [facility], patient's body was kept alive and patient was transferred to the operating room where she was extubated with her present in the room. Following extubation, she was without breath sounds and without pulse or heart sounds via auscultation. She was pronounced at 6:35 am. Patient's was notified of her .
== END 2020-11-25 06:35 | disposition expired ==
LOC: OROUT 23:10 → ICU 11-25 01:20 → OROUT 11-25 06:35
DX: Z52.4 Kidney donor (principal)
CPT/HCPCS: 86900; 86901; 36415; 87040; 87086; 86850; 82803; 83735; 84100; 85025; 85610; 85730; 87070; 87077; 87088; 81001; 87186; 71045; 94003; J0171; J1644; J2370; J3490; J7060; J2543; J3370